=== PATIENT | female | born 1960 | race Caucasian/White ===

== ENCOUNTER → 2018-09-02 08:13 | Outpatient (CLI) | payer OTHER, SELFPAY ==
--- NOTE | 2018-09-02 09:27 | PM.TREADMILL ---
Cardiac Stress Test Report Referral & Results Date Patient Seen: 09/02/18 Requesting provider: Kim Juan Indication: Chest pain, abnormal regular treadmill Rest ECG: Unremarkable Procedure Note: Today following both written and verbal informed consent the patient was exercised according to a standard Joe protocol patient went for a total of 7 min 7 sec achieving a maximum heart rate of 152 maximum systolic blood pressure of 180. This is approximately 10.1 METS. Exercise was terminated at this point because of targets were med. Patient was also given Cardiolite through a previously started Hep-Lock IV by the certified nuclear medicine technologist approximately 1 minute prior to the cessation of exercise. Patient did develop 2-3/10 chest pain with activity. There were also nonspecific upsloping ST segment changes in the inferior leads as well as leads V 5 and V6. These rapidly resolved with cessation of activity the suggesting their nonischemic nature Single PVC was identified Functional aerobic impairment rated 0 on the active scale or-20% on the sedentary scale Impression: Nonspecific ST-T segment changes as above, likely nonischemic Average exercise capacity Perfusion imaging to be reported separately Please note: Actual ECG tracings can be found in the PACS system.
--- NOTE | 2018-09-03 15:20 | DI.NM.S_ITS ---
DATE OF SERVICE: 09/02/2018 ORDERING PHYSICIAN: Kim Juan MD PROCEDURE: Exercise stress and rest myocardial perfusion imaging study with gating to assess ejection fraction and regional wall motion. INDICATIONS: The patient is a 58-year-old female with atypical chest pain but an equivocally abnormal exercise treadmill study. EXERCISE TREADMILL TESTING: The patient was able to exercise for 7 minutes 7 seconds on a standard Joe protocol, suggesting average exercise capacity with an ARIELLE of 0%. She had a normal heart rate and blood pressure response, achieving a maximum heart rate of 152 BPM (94% of her predicted maximum). She had no chest discomfort. Her resting ECG is normal. She again developed upsloping ST depression in the inferolateral leads that are nonspecific for ischemia. There were rare isolated PVCs but no complex ectopy. At 6 minutes 3 seconds of exercise, at a heart rate of 151 BPM, 25.8 mCi of technetium-99 Myoview was injected and the patient was then imaged 15 minutes later using a gated SPECT acquisition. The patient returned the following day and was reinjected with an additional 25.4 mCi of technetium-99 Myoview and was imaged 30 minutes later, again using a gated SPECT acquisition protocol. FINDINGS: 1. RAW DATA: There was fair myocardial tracer uptake with slight breast shadows noted. The lung-heart ratio is at the upper limits of normal at 0.42. TID ratio is normal at 0.83. 2. QUANTITATIVE GATED SPECT: Post stress ejection fraction is normal at 84% with normal wall motion. Specifically, the anterior wall has brisk contractility. The resting ejection fraction is estimated at 75% with an end- diastolic volume of 114 mL. 3. MYOCARDIAL PERFUSION IMAGING: Post-stress supine images show a subtle defect in the mid anterior wall, sparing the apex, in a pattern that would be consistent with breast attenuation artifact, supported by its complete resolution on the prone images. There are no other perfusion defects. The resting images show an identical perfusion pattern to that of the post-stress supine images without any areas of improvement. CONCLUSION: 1. Normal myocardial perfusion study. 2. Subtle fixed mid anterior defect that resolves on prone imaging, most consistent with breast attenuation artifact. There is no evidence for myocardial ischemia or previous myocardial infarction. 3. Normal left ventricular systolic function without any focal wall motion abnormality. The lung/heart ratio is borderline elevated at 0.42, but clinical correlation is recommended. 4. Average exercise capacity without angina or diagnostic ST segment changes of ischemia. Rare PVCs were noted. Virgen Muro - TONI/lorenzo/chloé doc#: [id number]/job#: [id number] dd: 09/03/2018 12:41:00 dt: 09/03/2018 15:10:00 DICTATING MD/COPIES TO: Cristopher Arenas MD ; Kim Juan MD ; Vonda Tirado, DANNY COPIES MNE: NORRIS DE SANTIAGO
== END ==
PROVIDERS: PCP Naturopath; Visit Provider Internal Medicine Cardiovascular Disease
DX: R07.89 Other chest pain (principal)
CPT/HCPCS: 78452; 93016; 93017; 93018; A9502

== ENCOUNTER → 2020-03-13 16:07 | Outpatient (CLI) | payer OTHER, SELFPAY ==
--- NOTE | 2020-03-13 | DI.US.S_ITS ---
PROCEDURE: US SOFT TISSUE HEAD AND NECK INDICATIONS: NECK MASS, palpable lump in the right submandibular gland region. TECHNIQUE: Real-time scanning was performed of the neck region of interest, with image documentation. COMPARISON: None. FINDINGS: There is a prominent lymph node measuring 2.1 x 0.9 x 1.0 cm in the right submandibular gland region. A fatty hilum is maintained. There is no increased vascular flow. The right submandibular gland itself is mildly enlarged and slightly heterogeneous. Ductal system appears moderately prominent. Color Doppler imaging demonstrates mild hyperemia in the gland. IMPRESSION: 1. Heterogeneous, enlarged, and mildly hyperemic right submandibular gland with ductal dilatation suspicious for sialadenitis. 2. Adjacent reactive benign-appearing lymph node. Dictated by: Ayesha Parham M.D. on 03/14/2020 at 10:06 Approved by: Ayesha Parham M.D. on 03/14/2020 at 10:08
[2020-03-13 18:08] LABS: Add Manual Diff / Slide Review NO; Basophils Absolute Auto 100 /uL (0-100); Basophils Percent Auto 0.7 % (0-2); Eosinophils Absolute Auto 200 /uL (0-450); Eosinophils Percent Auto 1.8 % (2-4); Hemoglobin 14.3 g/dL (12.0-16.0); Lymphocytes Absolute Auto 3500 /uL (1100-4500); Lymphocytes Percent Auto 33.4 % (25-40); Mean Corpuscular HGB Conc 34.8 % (30-36); Mean Corpuscular Hemoglobin 31.2 PG (26-34); Mean Corpuscular Volume 89.8 fL (80-100); Monocytes Absolute Auto 700 /uL (0-900); Neutrophils Absolute Auto 6000 /uL (1500-7000); Neutrophils Percent Auto 57.1 % (50-75); Platelet Count 306 X10^3/uL (150-400); Red Blood Cell Count 4.57 X10^6/uL (4.0-5.2); Red Cell Distribution Width 13.5 % (11.6-14.8); White Blood Cell Count 10.4 X10^3/uL (4.5-11.0)
[2020-03-13 18:35] LABS: Erythrocyte Sedimentation Rate 14 MM/HR (0-20)
[2020-03-13 20:49] LABS: Alanine Aminotransferase 20 IU/L (<35); Albumin 4.4 g/dL (3.5-5.0); Albumin Globulin Ratio 1.7 (1.0-2.8); Alkaline Phosphatase 50 U/L (38-126); Aspartate Aminotransferase 19 IU/L (14-36); BUN Creatinine Ratio 18.7 (6-22); Bilirubin Total 0.3 mg/dL (0.2-1.3); Blood Urea Nitrogen 17 mg/dL (7-17); Calcium 10.3 mg/dL (8.4-10.2); Carbon Dioxide 26 mmol/L (22-32); Chloride 104 mmol/L (98-107); Estimated Glomerular Filt Rate > 60.0 mL/min (>60); Globulin 2.6 g/dL (1.7-4.1); Glucose 93 mg/dL (80-110); HEMOLYSIS < 15 (0-50); Potassium 4.7 mmol/L (3.4-5.1); Sodium 139 mmol/L (137-145)
== END ==
PROVIDERS: PCP Naturopath; Referring Provider Naturopath; Visit Provider Naturopath
DX: R59.0 Localized enlarged lymph nodes (principal); L04.0 Acute lymphadenitis of face, head and neck
CPT/HCPCS: 36415; 76536; 80053; 85025; 85651

== ENCOUNTER → 2022-12-16 10:39 | Outpatient (CLI) | payer OTHER, SELFPAY ==
[2022-12-16 12:16] LABS: Add Manual Diff / Slide Review NO; Basophils Absolute Auto 100 /uL (0-100); Basophils Percent Auto 0.9 % (0-2); Eosinophils Absolute Auto 100 /uL (0-450); Eosinophils Percent Auto 1.4 % (2-4); Hematocrit 42.3 % (36-46); Hemoglobin 14.1 g/dL (12.0-16.0); Lymphocytes Absolute Auto 2800 /uL (1100-4500); Mean Corpuscular HGB Conc 33.3 % (30-36); Mean Corpuscular Hemoglobin 29.8 PG (26-34); Mean Corpuscular Volume 89.4 fL (80-100); Monocytes Absolute Auto 400 /uL (0-900); Monocytes Percent Auto 4.1 % (3-14); Neutrophils Absolute Auto 5600 /uL (1500-7000); Neutrophils Percent Auto 62.6 % (50-75); Platelet Count 320 X10^3/uL (150-400); Red Blood Cell Count 4.73 X10^6/uL (4.0-5.2); Red Cell Distribution Width 14.1 % (11.6-14.8)
[2022-12-16 12:45] LABS: Alanine Aminotransferase 16 IU/L (<35); Albumin 4.3 g/dL (3.5-5.0); Albumin Globulin Ratio 1.3 (1.0-2.8); Alkaline Phosphatase 47 U/L (38-126); Aspartate Aminotransferase 19 IU/L (14-36); BUN Creatinine Ratio 23.5 (6-22); Bilirubin Total 0.4 mg/dL (0.2-1.3); Blood Urea Nitrogen 19 mg/dL (7-17); C-Reactive Protein Quant 1.7 mg/dL (<1.0); Calcium 9.7 mg/dL (8.4-10.2); Carbon Dioxide 26 mmol/L (22-32); Chloride 101 mmol/L (98-107); Cholesterol 298 mg/dL (140-199); Estimated Glomerular Filt Rate > 60 mL/min (>60); Globulin 3.2 g/dL (1.7-4.1); Glucose 89 mg/dL (80-110); HDL Cholesterol 42 mg/dL (40-60); HEMOLYSIS < 15 (0-50); LDL Cholesterol Calculated 235 mg/dL (<100); Potassium 4.4 mmol/L (3.4-5.1); Sodium 138 mmol/L (137-145); Total Protein 7.5 g/dL (6.3-8.2); Triglycerides 103 mg/dL (35-150)
[2022-12-17 05:38] LABS: Labcorp Hemoglobin (Hb) A1c 5.4 % (4.8-5.6)
== END ==
PROVIDERS: PCP Naturopath; Referring Provider Naturopath; Visit Provider Naturopath
DX: Z00.00 Encounter for general adult medical examination without abnormal findings (principal); I10 Essential (primary) hypertension; E78.2 Mixed hyperlipidemia; R79.82 Elevated C-reactive protein (CRP)
CPT/HCPCS: 36415; 80053; 80061; 83036; 85025; 86140